=== PATIENT | female | born 1990 | race Caucasian/White ===

== ENCOUNTER 2025-08-19 17:22 | Emergency (ER) | payer BC ==
[~2025-08-19] VITALS: Ht 157.5 cm; Wt 65.3 kg
[2025-08-19 18:39] VITALS: BP 110/66; TEMP 99.4; O2SAT 99
== END 2025-08-19 18:40 | disposition home or self-care (01) ==
LOC: ER 17:30
DX: F11.10 Opioid abuse, uncomplicated (principal); Z87.891 Personal history of nicotine dependence; Z79.899 Other long term (current) drug therapy
CPT/HCPCS: 82962-TC